=== PATIENT | male | born 1945 ===

== ENCOUNTER 2020-08-12 13:50 | Emergency (ER) | payer MEDICARE, OTHER ==
[~2020-08-12] VITALS: Ht 170.2 cm; Wt 101.8 kg
--- NOTE | 2020-08-12 14:07 | NUR ---
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 VA'S NOT PERFORMED.
--- NOTE | 2020-08-12 14:36 | NUR ---
STORE RECEIVER: PT TO ROOM FROM [facility]
[2020-08-12] MEDS ORDERED: FLUORESCEIN OPHTHALMIC 1 MG STRIP ONE (14:53)
[2020-08-12] MEDS ORDERED: PROPARACAINE OPHTH 0.5%, 15ML ONE (14:54)
[2020-08-12] MEDS ORDERED: EYE WASH SOLUTION 120ML ONE (15:06)
--- NOTE | 2020-08-12 18:03 | NUR ---
OPTHOMOLOGIST BEDSIDE
[2020-08-12 18:20] VITALS: BP 135/78
--- NOTE | 2020-08-12 18:59 | NUR ---
PT REC'VD DISCHARGE EDUCATION AND INSTRUCTIONS. PT HAD NO FURTHER QUESTIONS. PT, WITH SPOUSE, AMBULATED TO DC AREA, STEADY GAIT.
== END 2020-08-12 19:01 | disposition home or self-care (01) ==
LOC: ED 17:30
DX: H57.11 Ocular pain, right eye (principal)
CPT/HCPCS: 99283